=== PATIENT | female | born 1990 | race Caucasian/White ===

== ENCOUNTER 2016-09-18 22:07 | Inpatient (IN) | payer MEDICAID, OTHER ==
[~2016-09-18] VITALS: Ht 158.8 cm; Wt 87.7 kg
[~2016-09-18 22:07] MED LIST: ALBU18HF2
[2016-09-18 23:12] LABS: BASOPHILS # (AUTO) 0.1 K/uL (0.0-0.2); BASOPHILS % (AUTO) 0.8 % (0.0-2.0); EOSINOPHILS # (AUTO) 0.7 K/uL (0.0-0.7); EOSINOPHILS % (AUTO) 5.2 % (0.0-7.0); HEMATOCRIT 38.8 % (37.0-47.0); HEMOGLOBIN 13.2 g/dL (12.0-16.0); LYMPHOCYTES # (AUTO) 3.9 K/uL (0.8-4.8); LYMPHOCYTES % (AUTO) 29.8 % (20.5-51.5); MEAN CORPUSCULAR HEMOGLOBIN 28.4 uug (27.0-31.0); MEAN CORPUSCULAR HGB CONC 34 g/dL (32.0-37.0); MEAN CORPUSCULAR VOLUME 83.2 fL (81.0-99.0); MONOCYTES # (AUTO) 0.7 K/uL (0.1-1.30); MONOCYTES % (AUTO) 5.2 % (0.0-11.0); NEUTROPHILS # (AUTO) 7.6 K/uL (1.8-8.9); PLATELET COUNT (AUTO) 456 K/uL (150-450); RED BLOOD CELL COUNT(AUTO) 4.66 MIL/uL (4.20-5.40); RED CELL DISTRIBUTION WIDTH 12.7 % (11.5-14.5)
[2016-09-18] MEDS ORDERED: MAGNESIUM HYDROXIDE 30 ML LIQUID UDC PO PRN ×2 (23:15→23:45)
[2016-09-18] MEDS ORDERED: MORPHINE SULFATE 2 MG/1 ML DISP.SYRIN IV PRN (23:15)
[2016-09-18] MEDS ORDERED: ACETAMINOPHEN 325 MG TABLET PO PRN ×2 (23:15→23:45)
[2016-09-18] MEDS ORDERED: ONDANSETRON 4 MG/2 ML VIAL IV PRN (23:15)
[2016-09-18 23:30] LABS: CALCIUM 9.5 mg/dL (8.5-10.1); CREATININE 0.6 mg/dL (0.6-1.3); POTASSIUM 3.7 mmol/L (3.5-5.1)
[2016-09-18] MEDS ORDERED: ASPIRIN 325 MG TABLET PO ONE (23:30)
[2016-09-18] MEDS ORDERED: ACETAMINOPHEN 325 MG TABLET ONE (23:31)
[2016-09-18] MEDS ORDERED: ASPIRIN 325 MG TABLET ONE (23:32)
[2016-09-18 23:36] LABS: ALBUMIN 4.2 g/dL (3.4-5.0); BILIRUBIN,TOTAL 0.2 mg/dL (0.2-1.0)
--- NOTE | 2016-09-18 23:46 | NUR ---
Pt. admitted to Telemetry room 205, under care of Dr. Potts. Report called to Gena at [id number]. Belongs List completed
--- NOTE | 2016-09-19 00:05 | NUR ---
PT WAS BROUGHT IN TO FLOOR VIA GURNEY. ADMITTED TO TELE UNDER DR. BEDOYA. DX : CVA. INITIATE ADMISSION ASSESSMENTS. BELONGING LISTS REVIEWED. WILL CALL FOR ORDERS.
[2016-09-19 00:30] VITALS: BP 133/80
[2016-09-19] MEDS ORDERED: ACETAMINOPHEN 325 MG TABLET ONE (00:36)
[2016-09-19] MEDS: ZOLPIDEM 5 MG TABLET PO PRN ×2 (01:19→22:45)
[2016-09-19] MEDS ORDERED: ZOLPIDEM 5 MG TABLET ONE (01:25)
[2016-09-19 04:00] VITALS: BP 91/59
--- NOTE | 2016-09-19 06:25 | NUR ---
PT SLEPT INTERMITTENTLY DURING SHIFT, AMBIEN WAS GIVEN PRESCRIBED. STROKE ASSESSMENT DONE, NO DEFICITS NOTED. C/O EAR AND NECKPAIN, REQUESTED TYLENOL WITH SOME HELP. SAFETY MAINTAINED, CALL LIGHT WITHIN REACH.
--- NOTE | 2016-09-19 07:00 | NUR ---
PT IS SLEEPING IN BED COMFORTABLY. NO S/S OF RESPIRATORY DISTRESS NOTED. NO PAIN NOTED. ALL SAFETY NEEDS ARE MET. IV INTACT/PATENT. WILL CONTINUE TO MONITOR.
--- NOTE | 2016-09-19 09:15 | NUR ---
PER DR. BEDOYA "IM NOT OREDERING ANTITHROMBOTIC MEDS BECAUSE PT NEEDS TO HAVE MRI FIRST". AFTER GETTING MRI RESULTS WILL EVALUATE. DR. BEDOYA IS AWARE OF PT'S FACIAL LEFT WEAKNESS, LEFT EAR SHOOTING PAIN AND BLURRY VISION ON LEFT EYE.
[2016-09-19] MEDS: MORPHINE SULFATE 2 MG/1 ML DISP.SYRIN IV PRN ×3 (09:43→20:32)
[2016-09-19 11:15] VITALS: BP 104/64
[2016-09-19] MEDS ORDERED: ALBUTEROL SULFATE 2.5 MG/3 ML NEBU NEB PRN (11:15)
--- NOTE | 2016-09-19 12:56 | NUR ---
MRI WILL BE DONE AT 5.30PM SPOKE TO
[2016-09-19 15:52] VITALS: BP 114/60
[2016-09-19] MEDS ORDERED: GADOVERSETAMIDE 2.5 MMOL/5 ML VIAL ONE (16:07)
--- NOTE | 2016-09-19 16:59 | NUR ---
PT WENT ON AMBULANCE TO GET MRI DONE. V/S WNL. NO S/S OF RESPIRATORY DISTRESS NOTED. NO PAIN NOTED.
--- NOTE | 2016-09-19 18:30 | NUR ---
PT IS BACK FROM MRI. REPORTS TO BE NAUSEOUS, WILL MEDICATED PER ORDER.
[2016-09-19] MEDS: KETOROLAC TROMETHAMINE 15 MG INJ IVP PRN (18:35)
[2016-09-19] MEDS: ONDANSETRON 4 MG/2 ML VIAL IV PRN (18:36)
--- NOTE | 2016-09-19 19:28 | NUR ---
NO NEW ONSET OF ACUTE WEAKNESS IS NOTED. NO S/S OF RESPIRATORY DISTRESS NOTED. NO PAIN NOTED. IV INTACT/PATENT.
[2016-09-19 20:00] VITALS: BP 102/63
--- NOTE | 2016-09-19 20:00 | NUR ---
received patient alert,oriented,speech clear,move all extremities,v/s wnl,awaiting for MRI w/wo contrast result,still c/o numbness of left facial,mild drooping and pain to left ear,medicated with morphine 2 mg iv alternated with Toradol 15 mg iv for pain controlled,nsr on tele monitor,patient seen by .
[2016-09-20] VITALS: BP 102/53
[2016-09-20] MEDS: ONDANSETRON 4 MG/2 ML VIAL IV PRN ×2 (00:23→13:54)
[2016-09-20] MEDS: KETOROLAC TROMETHAMINE 15 MG INJ IVP PRN ×2 (00:24→12:31)
[2016-09-20 04:00] VITALS: BP 103/55
--- NOTE | 2016-09-20 06:55 | NUR ---
patient slept well through the night,no acute changed in conditions,vital signs stable,continue closely monitor.
[2016-09-20] MEDS ORDERED: PANTOPRAZOLE SODIUM 40 MG TABLET.DR PO SCH (07:00)
--- NOTE | 2016-09-20 07:00 | NUR ---
PT IS LAYING IN BED COMFORTABLY. PT IS ALERT AND ORIENTED. NO BODY WEAKNESS IS ASSESSED. LEFT FACIAL WEAKNESS IS NOTED. IV INTACT/PATENT. ALL SAFETY NEEDS ARE MADE.
[2016-09-20] MEDS: MORPHINE SULFATE 2 MG/1 ML DISP.SYRIN IV PRN ×3 (09:13→18:31)
[2016-09-20 10:00] LABS: BASOPHILS # (AUTO) 0.1 K/uL (0.0-0.2); BASOPHILS % (AUTO) 0.6 % (0.0-2.0); EOSINOPHILS # (AUTO) 0.5 K/uL (0.0-0.7); EOSINOPHILS % (AUTO) 4.5 % (0.0-7.0); HEMATOCRIT 37.2 % (37.0-47.0); HEMOGLOBIN 12.5 g/dL (12.0-16.0); LYMPHOCYTES # (AUTO) 3.3 K/uL (0.8-4.8); LYMPHOCYTES % (AUTO) 30.3 % (20.5-51.5); MEAN CORPUSCULAR HEMOGLOBIN 27.8 uug (27.0-31.0); MEAN CORPUSCULAR HGB CONC 34 g/dL (32.0-37.0); MEAN CORPUSCULAR VOLUME 82.7 fL (81.0-99.0); MONOCYTES # (AUTO) 0.6 K/uL (0.1-1.30); MONOCYTES % (AUTO) 5.3 % (0.0-11.0); NEUTROPHILS # (AUTO) 6.3 K/uL (1.8-8.9); NEUTROPHILS % (AUTO) 59.3 % (38.5-71.5); PLATELET COUNT (AUTO) 404 K/uL (150-450); RED BLOOD CELL COUNT(AUTO) 4.49 MIL/uL (4.20-5.40); RED CELL DISTRIBUTION WIDTH 12.5 % (11.5-14.5); WHITE BLOOD COUNT (AUTO) 10.8 K/uL (4.0-11.2)
[2016-09-20 10:56] LABS: CALCIUM 8.3 mg/dL (8.5-10.1); CREATININE 0.7 mg/dL (0.6-1.3)
[2016-09-20 11:00] LABS: MAGNESIUM 2.1 mg/dL (1.8-2.4); PHOSPHOROUS 4.2 mg/dL (2.5-4.9)
[2016-09-20 12:05] VITALS: BP 95/62
[2016-09-20] MEDS ORDERED: predniSONE 20 MG TABLET PO SCH (13:00)
[2016-09-20] MEDS ORDERED: VALACYCLOVIR HCL 500 MG TABLET PO SCH (13:00)
[2016-09-20 15:40] VITALS: BP 105/64
[2016-09-20] MEDS ORDERED: Prednisone PO (18:40)
[2016-09-20] MEDS ORDERED: METH4TAB21 PO (18:40)
[2016-09-20] MEDS ORDERED: VALA500T PO (18:40)
[2016-09-20] MEDS ORDERED: HYDR-552 PO (18:40)
[2016-09-20] MEDS ORDERED: ONDA4TAB5 PO (18:40)
[2016-09-20] MEDS ORDERED: PANT40TA2 PO (18:40)
--- NOTE | 2016-09-20 19:15 | NUR ---
RECEIVED ORDER FOR PATIENT TO BE DISCHARGED HOME. PATIENT IS A/OX 4 IN ROOM WITH FAMILY. DENIES PAIN OR DISCOMFORT. NO RESP. DISTRESS NOTED. VSS. CALL LIGHT IN REACH. ALL NEEDS ATTENDED.
--- NOTE | 2016-09-20 19:30 | NUR ---
NO CHANGES NOTED
--- NOTE | 2016-09-20 20:05 | NUR ---
PATIENT DISCHARGED HOME IN STABLE CONDITION.
[2016-09-21] MEDS ORDERED: PANTOPRAZOLE SODIUM 40 MG TABLET.DR PO SCH (07:00)
== END 2016-09-20 20:05 | disposition home or self-care (01) | DRG 48 ==
LOC: ER 22:07 → TELE 23:13 → ER 23:45 → MED 09-20 14:30
PROVIDERS: ADMIT Internal Medicine; ATTEND Internal Medicine
DX: G51.0 Bell's palsy (principal); E66.9 Obesity, unspecified; Z68.34 Body mass index [BMI] 34.0-34.9, adult; Z80.8 Family history of malignant neoplasm of other organs or systems; D72.828 Other elevated white blood cell count; J45.909 Unspecified asthma, uncomplicated; Z98.890 Other specified postprocedural states
CPT/HCPCS: 36415; 70030-TC; 70450; 70553; 71010; 83735; 84100; 84703; 85025; 85730; 86140; 93005; A4663; A9579; J1885; J2270; J2405; J7512

== ENCOUNTER 2016-10-18 17:31 | Emergency (ER) | payer MEDICAID ==
[~2016-10-18] VITALS: Ht 160 cm; Wt 86.2 kg
[~2016-10-18 17:31] MED LIST changes: +HYDR-552 PO; +METH4TAB21 PO; +ONDA4TAB5 PO; +PANT40TA2 PO; +Prednisone PO; +VALA500T PO
[2016-10-18] MEDS ORDERED: ALBUTEROL SULFATE 2.5 MG/3 ML NEBU NEB ONE (18:00)
[2016-10-18] MEDS ORDERED: predniSONE 20 MG TABLET PO ONE (18:00)
[2016-10-18] MEDS ORDERED: predniSONE 10 MG TABLET ONE (18:12)
[2016-10-18] MEDS ORDERED: predniSONE 50 MG TABLET ONE (18:12)
[2016-10-18] MEDS ORDERED: ALBUTEROL SULFATE 2.5 MG/3 ML NEBU ONE (18:20)
--- NOTE | 2016-10-18 18:51 | NUR ---
Patient discharged to home in stable conditon. Written and verbal after care instructions given to patient. Patient verbalizes understanding of instructions.
== END 2016-10-18 18:53 | disposition home or self-care (01) ==
LOC: ER 17:31
DX: J45.901 Unspecified asthma with (acute) exacerbation (principal); F10.20 Alcohol dependence, uncomplicated
CPT/HCPCS: 71010; 93005; A4663; J7512

== ENCOUNTER 2017-01-08 16:30 | Emergency (ER) | payer MEDICAID ==
[~2017-01-08] VITALS: Ht 157.5 cm; Wt 88.5 kg
[2017-01-08] MEDS ORDERED: ONDANSETRON 4 MG/2 ML VIAL IV ONE ×2 (17:00→18:30)
[2017-01-08] MEDS ORDERED: IV NORMAL SALINE 1000 ML BAG IV ONE ×2 (17:00→18:30)
[2017-01-08 17:12] LABS: BASOPHILS # (AUTO) 0.1 K/uL (0.0-8.0); BASOPHILS % (AUTO) 0.8 % (0.0-2.0); EOSINOPHILS # (AUTO) 0.3 K/uL (0.0-0.7); EOSINOPHILS % (AUTO) 1.9 % (0.0-7.0); HEMATOCRIT 42.3 % (37-47); HEMOGLOBIN 13.7 G/DL (12.0-16.0); LYMPHOCYTES # (AUTO) 0.9 K/UL (0.8-4.8); LYMPHOCYTES % (AUTO) 5.1 % (20.5-51.5); MEAN CORPUSCULAR HEMOGLOBIN 27.5 UUG (27.0-31.0); MEAN CORPUSCULAR HGB CONC 32 g/dL (32.0-37.0); MEAN CORPUSCULAR VOLUME 84.9 FL (81.0-99.0); MONOCYTES # (AUTO) 0.5 K/UL (0.1-1.30); NEUTROPHILS % (AUTO) 89.2 % (38.5-71.5); PLATELET COUNT (AUTO) 409 K/UL (150-450); RED BLOOD CELL COUNT(AUTO) 4.98 MIL/UL (4.2-5.4); WHITE BLOOD COUNT (AUTO) 17.8 K/UL (4.0-11.2)
[2017-01-08] MEDS ORDERED: ONDANSETRON 4 MG/2 ML VIAL ONE ×2 (17:14→18:42)
[2017-01-08 17:22] LABS: CREATININE 0.7 mg/dL (0.6-1.3); POTASSIUM 3.8 mmol/L (3.5-5.1)
[2017-01-08 17:27] LABS: BILIRUBIN,DIRECT 0.1 mg/dL (0.0-0.2); BILIRUBIN,TOTAL 0.5 mg/dL (0.2-1.0)
[2017-01-08] MEDS ORDERED: MORPHINE SULFATE 2 MG/1 ML DISP.SYRIN IV ONE (17:30)
[2017-01-08] MEDS ORDERED: PANTOPRAZOLE SODIUM 40 MG VIAL IV ONE (17:30)
[2017-01-08] MEDS ORDERED: MORPHINE SULFATE 4 MG/1 ML DISP.SYRIN ONE (17:49)
[2017-01-08] MEDS ORDERED: PANTOPRAZOLE SODIUM 40 MG VIAL ONE (17:49)
--- NOTE | 2017-01-08 18:20 | NUR ---
Pt went to the restroom, pt was given supplies and instructions to collect a stool sample but stated she was unable.
[2017-01-08] MEDS ORDERED: KETOROLAC TROMETHAMINE 30 MG INJ IVP ONE (18:45)
[2017-01-08] MEDS ORDERED: KETOROLAC TROMETHAMINE 30 MG INJ ONE (18:57)
[2017-01-08] MEDS ORDERED: METOCLOPRAMIDE HCL 10 MG/2 ML VIAL IV ONE (19:00)
[2017-01-08] MEDS ORDERED: diphenhydrAMINE 50 MG/1 ML VIAL IV ONE (19:00)
[2017-01-08] MEDS ORDERED: METOCLOPRAMIDE HCL 10 MG/2 ML VIAL ONE (19:10)
[2017-01-08] MEDS ORDERED: diphenhydrAMINE 50 MG/1 ML VIAL ONE (19:10)
--- NOTE | 2017-01-08 19:10 | NUR ---
Received report from BLAKE Osullivan. Assumed care of pt at this time. Pt to CT via gilma. Per previous RN UA and Stool specimen still needed
--- NOTE | 2017-01-08 19:45 | NUR ---
Pt returned from CT via gurney. Pt denies pain at this time. Pt resting in position of comfort for self.
[2017-01-08 20:51] LABS: *BILIRUBIN,URIN NEGATIVE (NEGATIVE); *BLOOD, URINE 3+ (NEGATIVE); *CLARITY,URINE CLEAR (CLEAR); *COLOR,URINE YELLOW (YELLOW); *KETONES,URINE 1+ (NEGATIVE); *PROTEIN,URINE NEGATIVE (NEGATIVE); *UROBILINOGEN,URINE 0.2 E.U./dl (NORMAL); LEUKOCYTE ESTERASE ,URINE TRACE (NEGATIVE); NITRITE, URINE NEGATIVE (NEGATIVE); PH,URINE 5.5 (5.0-8.0); UGLUCOSE NEGATIVE (NEGATIVE)
[2017-01-08 21:02] LABS: BACTERIA,URINE FEW /HPF (NONE SEEN); SQUAMOUS EPITHELIAL CELL,UR FEW /HPF (NONE SEEN); WBC,URINE 0-3 /HPF (0-3)
[2017-01-08] MEDS ORDERED: ONDANSETRON ODT 4 MG TAB.RAPDIS SL ONE (22:00)
--- NOTE | 2017-01-08 22:11 | NUR ---
Pt requested nausea medication prior to discharge. MD notified and pt medicated. Pt stable for discharge per MD. IV dc'd, catheter intact, drsg applied. No problems noted to site. Pt given ACI. Pt verbalized understanding of dc instructions. Pt ambulated out of er with steady gait to wr to wait for ride.
[2017-01-08 22:14] VITALS: BP 104/68
[2017-01-08] MEDS ORDERED: ONDANSETRON ODT 4 MG TAB.RAPDIS ONE (22:17)
== END 2017-01-08 22:15 | disposition home or self-care (01) ==
LOC: ER 16:30
DX: R11.2 Nausea with vomiting, unspecified (principal); R19.7 Diarrhea, unspecified; E86.0 Dehydration; J45.909 Unspecified asthma, uncomplicated
CPT/HCPCS: 36415; 83690; 84703; 85025; A4663; C9113; J1200; J1885; J2270; J2405; J2765; J7030; Q0162

== ENCOUNTER 2019-11-29 18:52 | Emergency (ER) | payer MEDICAID ==
[~2019-11-29] VITALS: Ht 160 cm; Wt 88.5 kg
[2019-11-29 19:20] LABS: BASOPHILS # (AUTO) 0.1 K/uL (0.0-8.0); EOSINOPHILS # (AUTO) 0.3 K/uL (0.0-0.7); EOSINOPHILS % (AUTO) 2.5 % (0.0-7.0); HEMATOCRIT 37.6 % (31.2-41.9); HEMOGLOBIN 12.7 g/dL (10.9-14.3); LYMPHOCYTES # (AUTO) 4.2 K/uL (20.0-40.0); MEAN CORPUSCULAR HEMOGLOBIN 28.2 uug (24.7-32.8); MEAN CORPUSCULAR HGB CONC 34 g/dL (32.3-35.6); MEAN CORPUSCULAR VOLUME 83.9 fL (75.5-95.3); MONOCYTES # (AUTO) 0.5 K/uL (2.0-10.0); MONOCYTES % (AUTO) 4.4 % (0.0-11.0); NEUTROPHILS # (AUTO) 6.9 K/uL (1.8-8.9); NEUTROPHILS % (AUTO) 57.1 % (38.5-71.5); PLATELET COUNT (AUTO) 464 K/uL (179-408); RED BLOOD CELL COUNT(AUTO) 4.48 MIL/uL (3.63-4.92); WHITE BLOOD COUNT (AUTO) 12.1 K/uL (3.8-11.8)
[2019-11-29 19:26] LABS: *BILIRUBIN,URIN NEGATIVE (NEGATIVE); *COLOR,URINE YELLOW (YELLOW); *KETONES,URINE NEGATIVE (NEGATIVE); *UROBILINOGEN,URINE 0.2 E.U./dl (NORMAL); LEUKOCYTE ESTERASE ,URINE NEGATIVE (NEGATIVE); NITRITE, URINE NEGATIVE (NEGATIVE); PH,URINE 5.5 (5.0-8.0); UGLUCOSE NEGATIVE (NEGATIVE)
[2019-11-29 19:27] LABS: CREATININE 0.8 mg/dL (0.6-1.3); POTASSIUM 3.5 mmol/L (3.5-5.1)
[2019-11-29 19:28] LABS: *URINE HCG, QUAL NEGATIVE (NEGATIVE)
[2019-11-29 19:32] LABS: BILIRUBIN,DIRECT 0.1 mg/dL (0.0-0.2); BILIRUBIN,TOTAL 0.3 mg/dL (0.2-1.0); TOTAL PROTEIN, SERUM 7.9 g/dL (6.4-8.2)
[2019-11-29 19:39] LABS: *BLOOD, URINE TRACE (NEGATIVE); *CLARITY,URINE SLIGHTLY HAZY (CLEAR)
[2019-11-29 19:40] LABS: BACTERIA,URINE FEW /HPF (NONE SEEN); MUCUS,URINE MODERATE /LPF (0-FEW); RBC,URINE 0-3 /HPF (0-3); SQUAMOUS EPITHELIAL CELL,UR FEW /HPF (NONE SEEN); WBC,URINE 0-3 /HPF (0-3)
--- NOTE | 2019-11-29 20:03 | NUR ---
DR PARTIDA AT BEDSIDE MADE PATIENT AWARE OF TEST RESULTS.
--- NOTE | 2019-11-29 20:08 | NUR ---
Patient discharged to home in stable condition. Written and verbal after care instructions given. Patient verbalizes understanding of instructions. Stressed follow up or return to ER for worsening s/s.
[2019-11-29 20:13] VITALS: BP 120/79
== END 2019-11-29 20:14 | disposition home or self-care (01) ==
LOC: ER 18:53
DX: R10.2 Pelvic and perineal pain (principal); D72.829 Elevated white blood cell count, unspecified; Z98.890 Other specified postprocedural states; J45.909 Unspecified asthma, uncomplicated
CPT/HCPCS: 36415; 83690; 84703; 85025; A4663